=== PATIENT | female | born 1980 | race Caucasian/White ===

== ENCOUNTER 2021-02-08 11:36 | Emergency (ER) | payer BC, MEDICAID ==
[~2021-02-08] VITALS: Ht 162.6 cm; Wt 73.9 kg
--- NOTE | 2021-02-08 11:44 | NUR ---
TO ER BED 16, C/O ABDOMINAL CRAMPING, LIGHTHEADED, FEELING "FAINT" X 2 HRS. 16 WEEKS , DENIES BLEEDING, AAOX3, BREATHING EVEN AND NON LABORED.
--- NOTE | 2021-02-08 11:49 | NUR ---
URINE COLLECTED AND SENT TO LAB
[2021-02-08 12:06] LABS: BASOPHILS # (AUTO) 0.2 K/uL (0.0-0.2); BASOPHILS % (AUTO) 1.4 % (0.0-2.0); EOSINOPHILS % (AUTO) 0.4 % (0.0-6.0); HEMATOCRIT 38 % (33-45); HEMOGLOBIN 12.8 g/dL (11.5-14.8); LYMPHOCYTES % (AUTO) 8.7 % (20.0-44.0); MEAN CORPUSCULAR HGB CONC 34 g/dl (31.0-36.0); MEAN CORPUSCULAR VOLUME 84 fL (82-100); MONOCYTES # (AUTO) 0.5 K/uL (0.1-1.30); MONOCYTES % (AUTO) 4.3 % (2.0-12.0); NEUTROPHILS % (AUTO) 85.2 % (43.0-81.0); PLATELET COUNT (AUTO) 334 K/uL (150-450); RED BLOOD CELL COUNT(AUTO) 4.53 MIL/uL (4.0-5.2); WHITE BLOOD COUNT (AUTO) 11.8 K/uL (4.3-11.0)
[2021-02-08 12:13] LABS: BILIRUBIN,URINE Negative (NEGATIVE); COLOR,URINE YELLOW (YELLOW); LEUKOCYTE ESTERASE ,URINE Negative (NEGATIVE); NITRITE, URINE Negative (NEGATIVE); PROTEIN,URINE Negative (NEGATIVE); UGLUCOSE Negative (NEGATIVE); UROBILINOGEN,URINE 0.2 EU/dL (0.2)
[2021-02-08 12:29] LABS: ALBUMIN 3.3 g/dL (3.4-5.0); BILIRUBIN,DIRECT 0.1 mg/dL (0.0-0.2); BILIRUBIN,TOTAL 0.4 mg/dL (0.2-1.0); CALCIUM, SERUM 8.8 mg/dL (8.5-10.1); CREATININE 0.7 mg/dL (0.6-1.3); TOTAL PROTEIN, SERUM 7.5 g/dL (6.4-8.2)
[2021-02-08 12:49] LABS: BACTERIA,URINE Rare /HPF (None Seen); SQUAMOUS EPITHELIAL CELL,UR Few /HPF (None Seen); WBC,URINE NONE SEEN /HPF (0-3)
[2021-02-08 12:54] LABS: POTASSIUM 4.2 mmol/L (3.5-5.1)
[2021-02-08 13:17] VITALS: BP 125/71
--- NOTE | 2021-02-08 13:19 | NUR ---
Patient discharged to home in stable condition. Written and verbal after care instructions given. Patient verbalizes understanding of instruction.
== END 2021-02-08 13:18 | disposition home or self-care (01) ==
LOC: ER 11:45
DX: O26.92 Pregnancy related conditions, unspecified, second trimester (principal); R10.9 Unspecified abdominal pain; Z3A.16 16 weeks gestation of pregnancy
CPT/HCPCS: 36415; 76805-TC; 80048-TC; 80076-TC; 81001; 83690-TC; 84703-TC; 85025-TC

== ENCOUNTER 2023-06-04 19:13 | Emergency (ER) | payer MEDICAID ==
[~2023-06-04] VITALS: Ht 162.6 cm; Wt 77.1 kg
[2023-06-04] MEDS ORDERED: FAMOTIDINE/PF INJ 20 MG/2 ML VIAL IV ONE (19:45)
[2023-06-04] MEDS ORDERED: ONDANSETRON HCL/PF 4 MG/2 ML VIAL ONE (19:45)
[2023-06-04] MEDS: IV NS 0.9% 1,000 ML BAG IV ONE (19:50)
[2023-06-04] MEDS: FAMOTIDINE/PF INJ 20 MG/2 ML VIAL IV ONE (19:51)
[2023-06-04] MEDS: ONDANSETRON HCL/PF 4 MG/2 ML VIAL IVP ONE (19:51)
[2023-06-04 19:54] LABS: APPEARANCE,URINE Slightly Cloudy (CLEAR); BASOPHILS # (AUTO) 0.1 K/uL (0.0-0.2); BASOPHILS % (AUTO) 0.7 % (0.0-2.0); BILIRUBIN,URINE Negative (NEGATIVE); BLOOD, URINE Trace-intact Ery/uL (NEGATIVE); COLOR,URINE YELLOW (YELLOW); EOSINOPHILS # (AUTO) 0.2 K/uL (0.0-0.7); EOSINOPHILS % (AUTO) 2.3 % (0.0-6.0); HEMATOCRIT 44 % (33-45); HEMOGLOBIN 14.3 g/dL (11.5-14.8); KETONES,URINE Negative (NEGATIVE); LEUKOCYTE ESTERASE ,URINE Negative (NEGATIVE); LYMPHOCYTES # (AUTO) 2.7 K/uL (0.8-4.8); LYMPHOCYTES % (AUTO) 26.8 % (20.0-44.0); MEAN CORPUSCULAR HEMOGLOBIN 27 PG (26.0-33.0); MEAN CORPUSCULAR HGB CONC 33 g/dl (31.0-36.0); MEAN CORPUSCULAR VOLUME 83 fL (82-100); MONOCYTES # (AUTO) 0.4 K/uL (0.1-1.30); MONOCYTES % (AUTO) 4.5 % (2.0-12.0); NEUTROPHILS # (AUTO) 6.5 K/uL (1.8-8.9); NEUTROPHILS % (AUTO) 65.7 % (43.0-81.0); NITRITE, URINE Negative (NEGATIVE); PH,URINE 7.5 (5.0-8.0); PLATELET COUNT (AUTO) 318 K/uL (150-450); PROTEIN,URINE 30 mg/dl (NEGATIVE); RED BLOOD CELL COUNT(AUTO) 5.29 MIL/uL (4.0-5.2); UGLUCOSE Negative (NEGATIVE); UROBILINOGEN,URINE 0.2 EU/dL (0.2); WHITE BLOOD COUNT (AUTO) 9.9 K/uL (4.3-11.0)
[2023-06-04 19:55] LABS: PREGNANCY TEST URINE QUAL NEGATIVE (NEGATIVE)
[2023-06-04 20:02] LABS: CALCIUM, SERUM 8.6 mg/dL (8.5-10.1); CREATININE 0.9 mg/dL (0.6-1.3); POTASSIUM 3.5 mmol/L (3.5-5.1)
[2023-06-04 20:07] LABS: ALBUMIN 3.7 g/dL (3.4-5.0); BILIRUBIN,DIRECT 0.1 mg/dL (0.0-0.2); BILIRUBIN,TOTAL 0.6 mg/dL (0.2-1.0); TOTAL PROTEIN, SERUM 7.3 g/dL (6.4-8.2)
[2023-06-04 20:35] LABS: WBC,URINE 0-2 /HPF (0-3)
[2023-06-04 20:36] LABS: SQUAMOUS EPITHELIAL CELL,UR 21-50 /HPF (None Seen)
[2023-06-04 20:37] LABS: ADD URINE CULTURE YES; BACTERIA,URINE 2+ /HPF (None Seen); MUCUS,URINE Few /LPF (None Seen)
[2023-06-04] MEDS ORDERED: IBUP-1953 PO (21:03)
[2023-06-04 21:21] VITALS: BP 130/78; TEMP 98.5; O2SAT 99
== END 2023-06-04 21:43 | disposition home or self-care (01) ==
LOC: ER 19:18
DX: K80.50 Calculus of bile duct without cholangitis or cholecystitis without obstruction (principal); K80.20 Calculus of gallbladder without cholecystitis without obstruction
CPT/HCPCS: 99285; 96374; 76700; 71045; 96361; 93005; 85025; 80048; 87086; 83690; 80076; 84703; 81001; 36415; J3490; J7030; J2405